=== PATIENT | female | born 1945 | race Caucasian/White ===

== ENCOUNTER 2019-10-28 15:15 | Inpatient (IN) ==
[2019-10-28] MEDS ORDERED: Acetaminophen 325 MG TABLET PO PRN (17:46)
[2019-10-28] MEDS ORDERED: Ondansetron 4 MG/2 ML VIAL IVP PRN (17:46)
[2019-10-28] MEDS ORDERED: Naloxone 0.4 MG/ML INJ IVP PRN (17:46)
[2019-10-28] MEDS ORDERED: *HR* HYDROcodone/Acet 5/325 mg TABLET PO PRN (17:46)
[2019-10-28] MEDS ORDERED: *HR* Heparin 5,000 UNIT/ML VIAL IVP ONE (17:50)
[2019-10-28] MEDS ORDERED: *HR* Heparin 5,000 UNIT/ML VIAL IVP PRN ×2 (17:50)
[2019-10-28] MEDS ORDERED: Nitroglycerin 0.4 MG TAB.SUBL SL PRN (18:18)
[2019-10-28 18:23] LABS: Basophils # 0.1 K/mcL (0.0-0.2); Basophils % 0.9 %; Eosinophils # 0.2 K/mcL (0.0-0.6); Hematocrit 33.3 % (35.3-44.9); Hemoglobin 11.2 g/dL (11.5-15.4); Immature Granulocytes % 0.3 % (0-4); Lymphocytes # 1.4 K/mcL (0.6-4.6); Lymphocytes % 17.9 %; Mean Corpuscular HGB Conc 33.6 g/dL (31.6-35.5); Mean Corpuscular Hemoglobin 31.5 pg (28.0-33.3); Mean Corpuscular Volume 93.5 fL (83.0-100.0); Mean Platelet Volume 9.5 fL (9.4-12.4); Monocytes # 0.8 K/mcL (0.0-1.3); Monocytes % 9.9 %; Neutrophils # 5.4 K/mcL (1.6-8.9); Platelet Count 337 K/mcL (140-400); Red Blood Count 3.56 M/mcL (3.82-4.97); White Blood Count 7.9 K/mcL (4.3-11.1)
[2019-10-28 18:28] LABS: Prothrombin Time 11.6 Seconds (9.4-12.1)
[2019-10-28 18:42] LABS: Calcium 9.5 mg/dL (8.6-10.3); Potassium 4.2 mEq/L (3.5-5.1)
[2019-10-28 18:57] LABS: Magnesium 2.7 mg/dL (1.6-2.6); Phosphorous 3.5 mg/dL (2.7-4.5); Troponin I 8.57 ng/mL (< 0.04)
[2019-10-28] MEDS ORDERED: Morphine Sulfate 2 MG/ML SYRINGE IVP PRN (21:43)
[2019-10-28] MEDS: Heparin 25,000 UNIT/250 ML D5W 25,000 UNIT/250 ML IV.SOLN IVC SCH (22:13)
[2019-10-28] MEDS: Nitroglycerin 1 INCH/GM PACKET TP SCH (22:23)
[2019-10-29 01:21] LABS: Hematocrit 31.9 % (35.3-44.9); Hemoglobin 10.6 g/dL (11.5-15.4); Mean Corpuscular HGB Conc 33.2 g/dL (31.6-35.5); Mean Corpuscular Hemoglobin 30.9 pg (28.0-33.3); Mean Platelet Volume 9.8 fL (9.4-12.4); Platelet Count 335 K/mcL (140-400); Red Blood Count 3.43 M/mcL (3.82-4.97); Red Cell Distribution Width 13.2 % (11.5-14.5); White Blood Count 8.7 K/mcL (4.3-11.1)
[2019-10-29 01:46] LABS: Calcium 8.9 mg/dL (8.6-10.3); Chol/HDL Ratio 4.4 (0-4.9); Troponin I 9.84 ng/mL (< 0.04)
[2019-10-29] MEDS ORDERED: 0.9 % Sodium Chloride 250 ML IVC ONE (01:58)
[2019-10-29] MEDS: Nitroglycerin 1 INCH/GM PACKET TP SCH (06:12)
[2019-10-29] MEDS ORDERED: GI Cocktail 40 ML EACH PO ONE (10:03)
[2019-10-29] MEDS: Aspirin 81 MG TAB.CHEW PO SCH (10:26)
[2019-10-29] MEDS: Famotidine 20 MG TABLET PO SCH ×2 (11:00→20:06)
[2019-10-29] MEDS: Heparin 25,000 UNIT/250 ML D5W 25,000 UNIT/250 ML IV.SOLN IVC SCH (20:12)
[2019-10-30 06:16] LABS: Calcium 8.9 mg/dL (8.6-10.3); Troponin I 11.19 ng/mL (< 0.04)
[2019-10-30] MEDS: Famotidine 20 MG TABLET PO SCH ×2 (08:59→20:57)
[2019-10-30] MEDS: Aspirin 81 MG TAB.CHEW PO SCH (09:01)
[2019-10-30] MEDS ORDERED: hydrOXYzine pamoate 25 MG CAPSULE PO PRN (10:19)
[2019-10-31 07:25] VITALS: BP 120/78
[2019-10-31] MEDS: Famotidine 20 MG TABLET PO SCH (09:11)
[2019-10-31] MEDS: Aspirin 81 MG TAB.CHEW PO SCH (09:12)
== END 2019-10-31 10:49 | disposition home or self-care (01) | DRG 282 ==
LOC: 2NENU → SUATTDRO 16:52
PROVIDERS: ADMIT Internal Medicine; ATTEND Internal Medicine